=== PATIENT | female | born 1960 | race Caucasian/White ===

== ENCOUNTER 2023-11-03 10:55 | Emergency (ER) | payer SELFPAY ==
[2023-11-03] MEDS ORDERED: Lidocaine 1% (PF) 30 ML VIAL ONE (11:11)
[2023-11-03] MEDS ORDERED: Ibuprofen 200 MG TAB ONE (11:11)
[2023-11-03] MEDS ORDERED: Boostrix 0.5 ML (Tdap) VIAL (>/=7 yrs of age) ONE (11:11)
[2023-11-03] MEDS ORDERED: Bacitracin 1 PK ONE (11:21)
== END 2023-11-03 12:55 | disposition home or self-care (01) ==
LOC: MADERS 10:55
DX: S92.531A Displaced fracture of distal phalanx of right lesser toe(s), initial encounter for closed fracture (principal); S91.311A Laceration without foreign body, right foot, initial encounter; F17.210 Nicotine dependence, cigarettes, uncomplicated; Z23 Encounter for immunization; V09.9XXA Pedestrian injured in unspecified transport accident, initial encounter
CPT/HCPCS: 12004; 90471; 90715; J2001